=== PATIENT | female | born 1955 | race American Indian/Alaskan Native ===

== ENCOUNTER 2021-03-03 01:06 | Emergency (ER) | payer BC ==
[2021-03-03] MEDS ORDERED: FAMOTIDINE 20 MG/2 ML INJ IV ONE (01:54)
[2021-03-03] MEDS ORDERED: MORPHINE 4 MG/1 ML INJ IV ONE (01:54)
[2021-03-03] MEDS ORDERED: ONDANSETRON 4 MG/2 ML INJ IV ONE (01:54)
[2021-03-03] MEDS ORDERED: SODIUM CHLORIDE 0.9% 1000 ML 1,000 ML IV ONE (01:54)
--- NOTE | 2021-03-03 02:10 | Event Note ---
ED Screening Note Date of service: 03/03/21 Time: 02:08 ED Screening Note: Patient is a 65-year-old -[place] female with a history of hypertension who presents to the ED with complaint of acute onset persistent intractable nausea and vomiting for the last 6 hours. Patient also states that she developed sudden onset dizziness with room spinning around after vomiting. Patient also states that she has not had a bowel movement in 5 days. Patient also complains of epigastric pain after having multiple episodes of vomiting. Patient denies syncope, lightheadedness, chest pain, shortness of breath, palpitations, diaphoresis, dysuria, urinary frequency and urgency, hematemesis, hemoptysis or cough, fever and chills. This initial assessment/diagnostic orders/clinical plan/treatment(s) is/are subject to change based on patients health status, clinical progression and re-assessment by fellow clinical providers in the ED. Further treatment and workup at subsequent clinical providers discretion. Patient/guardian urged not to elope from the ED as their condition may be serious if not clinically assessed and managed. Initial orders include: EKG, CBC, CMP, troponin, abdomen x-ray with chest, head CT scan without contrast, lipase, UA
[2021-03-03 02:21] LABS: Basophils % (Auto) 0.2 % (0.0-1.8); Eosinophils % (Auto) 0.2 % (0.0-4.3); Hematocrit 39.9 % (30.3-42.9); Lymphocytes % (Auto) 8.5 % (13.4-35.0); Mean Corpuscular HGB Conc 33 % (30-34); Mean Corpuscular Volume 83 fl (79-97); Monocytes # (Auto) 0.3 K/mm3 (0.0-0.8); Monocytes % (Auto) 2.1 % (0.0-7.3); Platelet Count 347 K/mm3 (140-440)
--- NOTE | 2021-03-03 02:28 | XRay Report ---
Abdomen with chest 3 views INDICATION: Dizziness FINDINGS: Constipation right colon. Calcific density is seen in the right lower quadrant measuring 1. 4 cm may be within the bowel. Prior cholecystectomy. No acute bone findings are seen. No free air is identified. No other acute findings. Signer Name: Rm Hdz MD Signed: 03/03/2021 2:24 AM Workstation Name: [email or web address]
[2021-03-03 02:42] LABS: Alanine Aminotransferase 18 units/L (7-56); Albumin 4.4 g/dL (3.9-5); Blood Urea Nitrogen 16 mg/dL (7-17); Hemolysis Index 7
[2021-03-03 02:44] LABS: BUN/Creatinine Ratio 23
--- NOTE | 2021-03-03 03:22 | Cat Scan Report ---
CT HEAD WITHOUT CONTRAST INDICATION / CLINICAL INFORMATION: dizziness. TECHNIQUE: All CT scans at this location are performed using CT dose reduction for ALARA by means of automated e xposure control. COMPARISON: None available. FINDINGS: No acute intracranial hemorrhage. Ventricles normal in size without midline shift or mass effect. Lef t maxillary sinus disease is seen. ADDITIONAL FINDINGS: None. IMPRESSION: 1. Left maxillary sinus disease. No other acute findings. Signer Name: Rm Hdz MD Signed: 03/03/2021 3:18 AM Workstation Name: [id number]
--- NOTE | 2021-03-03 04:10 | Emergency Department Report ---
ED N/V/D HPI - General Chief complaint: Abdominal Pain Stated complaint: ABD PAIN NO BM X5DAYS DIZZINESS Time Seen by Provider: 03/03/21 02:23 Source: patient Mode of arrival: Ambulatory Limitations: No Limitations - History of Present Illness Initial comments: Patient is a 65-year-old -English female with a history of hypertension who presents to the ED with complaint of acute onset persistent intractable nausea and vomiting for the last 6 hours. Patient also states that she developed sudden onset dizziness with room spinning around after vomiting. Patient also states that she has not had a bowel movement in 5 days. Patient also complains of epigastric pain after having multiple episodes of vomiting. Patient denies syncope, lightheadedness, chest pain, shortness of breath, palpitations, diaphoresis, dysuria, urinary frequency and urgency, hematemesis, hemoptysis or cough, fever and chills. MD complaint: nausea, vomiting, abdominal pain (Epigastric), other (dizziness; constipation) -: Sudden Description of Vomiting: food contents, watery, bilious Associated Abdominal Pain: Yes (mild epigastric ) Location: epigastric Radiation: none Severity: moderate Pain Scale: 5 Quality: cramping, aching Consistency: constant Improves with: none Worsens with: vomiting Context: other (constipation) Associated Symptoms: denies other symptoms, loss of appetite, malaise, nausea/vomiting, other (Dizziness). denies: myalgias, chest pain, cough, diaphoresis, fever/chills, headaches, rash, dysuria, shortness of breath, syncope, weakness - Related Data Previous Rx's Medication Instructions Recorded Last Taken Type Amoxicillin [Trimox CAP] 500 mg PO Q8H #30 capsule 03/03/21 Unknown Rx Docusate Sodium [Dok] 100 mg PO Q12H #60 tablet 03/03/21 Unknown Rx Famotidine [Pepcid] 20 mg PO BID #60 tablet 03/03/21 Unknown Rx Magnesium Citrate 296 ml PO ONCE #1 bottle 03/03/21 Unknown Rx Ondansetron [Zofran Odt] 4 mg PO Q6HR PRN #20 tab.rapdis 03/03/21 Unknown Rx Allergies Allergy/AdvReac Type Severity Reaction Status Date / Time No Known Allergies Allergy Unverified 03/03/21 01:24 ED Review of Systems ROS: Stated complaint: ABD PAIN NO BM X5DAYS DIZZINESS Other details as noted in HPI Constitutional: malaise. denies: chills, fever Eyes: denies: eye pain, eye discharge, vision change ENT: denies: ear pain, throat pain Respiratory: denies: cough, shortness of breath, wheezing Cardiovascular: denies: chest pain, palpitations Endocrine: no symptoms reported Gastrointestinal: abdominal pain (Mild epigastric), nausea, vomiting, constipation. denies: diarrhea Genitourinary: denies: urgency, dysuria, discharge Musculoskeletal: denies: back pain, joint swelling, arthralgia Skin: denies: rash, lesions Neurological: vertigo. denies: headache, weakness, paresthesias Psychiatric: anxiety. denies: depression Hematological/Lymphatic: denies: easy bleeding, easy bruising ED Past Medical Hx - Past Medical History Previous Medical History?: Yes Hx Hypertension: Yes - Surgical History Past Surgical History?: Yes - Medications Home Medications: Home Medications Medication Instructions Recorded Confirmed Last Taken Type Amoxicillin [Trimox CAP] 500 mg PO Q8H #30 capsule 03/03/21 Unknown Rx Docusate Sodium [Dok] 100 mg PO Q12H #60 tablet 03/03/21 Unknown Rx Famotidine [Pepcid] 20 mg PO BID #60 tablet 03/03/21 Unknown Rx Magnesium Citrate 296 ml PO ONCE #1 bottle 03/03/21 Unknown Rx Ondansetron [Zofran Odt] 4 mg PO Q6HR PRN #20 tab.rapdis 03/03/21 Unknown Rx ED Physical Exam - General Limitations: No Limitations General appearance: alert, in no apparent distress - Head Head exam: Present: atraumatic, normocephalic, normal inspection - Eye Eye exam: Present: normal appearance, PERRL, EOMI Pupils: Present: normal accommodation - ENT ENT exam: Present: normal exam, normal orophraynx, mucous membranes moist, TM's normal bilaterally, normal external ear exam - Neck Neck exam: Present: normal inspection, full ROM - Respiratory Respiratory exam: Present: normal lung sounds bilaterally. Absent: respiratory distress, wheezes, rhonchi, stridor, chest wall tenderness, accessory muscle use, decreased breath sounds, prolonged expiratory - Cardiovascular Cardiovascular Exam: Present: regular rate, normal rhythm, normal heart sounds. Absent: systolic murmur, diastolic murmur, rubs, gallop - GI/Abdominal GI/Abdominal exam: Present: soft, tenderness (Palpable mild epigastric tenderness), normal bowel sounds. Absent: guarding, rebound, hyperactive bowel sounds, mass - Extremities Exam Extremities exam: Present: normal inspection, full ROM, normal capillary refill - Back Exam Back exam: Present: normal inspection, full ROM. Absent: tenderness, CVA tenderness (R), CVA tenderness (L), muscle spasm, paraspinal tenderness, vertebral tenderness - Neurological Exam Neurological exam: Present: alert, oriented X3, CN II-XII intact, normal gait, reflexes normal - Psychiatric Psychiatric exam: Present: normal affect, normal mood, anxious - Skin Skin exam: Present: warm, dry, intact, normal color. Absent: rash ED Course Vital Signs 03/03/21 01:26 Temperature 98.0 F Pulse Rate 93 H Respiratory 17 Rate Blood Pressure 206/94 O2 Sat by Pulse 95 Oximetry ED Medical Decision Making - Lab Data Result diagrams: 03/03/21 02:00 03/03/21 02:00 - Radiology Data Radiology results: report reviewed, image reviewed [address] [address] XRay Report Signed Patient: ROSALIE FLORES MR#: [id number] : 1955 Acct:[id number] Age/Sex: 65 / F ADM Date: 03/03/21 Loc: ED Attending Dr: Ordering Physician: JAGUAR BARAHONA Date of Service: 03/03/21 Procedure(s): XR abd series w cxr 1V Accession Number(s): [id number] cc: JAGUAR BARAHONA Fluoro Time In Minutes: Abdomen with chest 3 views INDICATION: Dizziness FINDINGS: Constipation right colon. Calcific density is seen in the right lower quadrant measuring 1.4 cm may be within the bowel. Prior cholecystectomy. No acute bone findings are seen. No free air is identified. No other acute findings. Signer Name: Rm Hdz MD Signed: 03/03/2021 2:24 AM Workstation Name: [id number] Transcribed By: CW Dictated By: SANDI HDZ MD Electronically Authenticated By: SANDI HDZ MD Signed Date/Time: 03/03/21 0224 DD/ 2 TD/TT: [facility] [address] [place] [address] Cat Scan Report Signed Patient: ROSALIE FLORES MR#: [id number] : 1955 Acct:[id number] Age/Sex: 65 / F ADM Date: 03/03/21 Loc: ED Attending Dr: Ordering Physician: JAGUAR BARAHONA Date of Service: 03/03/21 Procedure(s): CT head/brain wo con Accession Number(s): [id number] cc: JAGUAR BARAHONA CT HEAD WITHOUT CONTRAST INDICATION / CLINICAL INFORMATION: dizziness. TECHNIQUE: All CT scans at this location are performed using CT dose reduction for ALARA by means of automated exposure control. COMPARISON: None available. FINDINGS: No acute intracranial hemorrhage. Ventricles normal in size without midline shift or mass effect. Left maxillary sinus disease is seen. ADDITIONAL FINDINGS: None. IMPRESSION: 1. Left maxillary sinus disease. No other acute findings. Signer Name: Rm Hdz MD Signed: 03/03/2021 3:18 AM Workstation Name: [id number] Transcribed By: CW Dictated By: SANDI HDZ MD Electronically Authenticated By: SANDI HDZ MD Signed Date/Time: 03/03/21317 DD/ 6 TD/TT: - Medical Decision Making This is a 65-year-old -English female with a history of hypertension who presents to the ED with complaint of acute onset persistent intractable nausea and vomiting for the last 6 hours. Patient also states that she developed sudden onset dizziness with room spinning around after vomiting. Patient also states that she has not had a bowel movement in 5 days. Patient also complains of epigastric pain after having multiple episodes of vomiting. In the ED, patient is alert and oriented x3 and is not in any distress. Lab test results were reviewed and are all nonactionable except for mild leukocytosis of 12,300. Abdomen x-ray showed significant diffuse colonic stool burden consistent with constipation. The chest x-ray showed no acute cardiopulmonary abnormalities or pneumonitis. The head CT scan without contrast showed no acute intracranial abnormalities or hemorrhage but left maxillary sinusitis. Patient was treated with antacids, antiemetics and also given normal saline 1 L IV bolus x1. On reevaluation, patient felt better, patient passed oral fluid challenge in the ED after treatment. Patient was therefore discharged home on medications and advised to follow-up with her primary care physician in 3 to 5 days for reevaluation or return to the ED immediately if symptoms get worse. - Differential Diagnosis Constipation; Gastroenteritis; Dehydration; Sinusitis; GERD Critical care attestation.: If time is entered above; I have spent that time in minutes in the direct care of this critically ill patient, excluding procedure time. ED Disposition Clinical Impression: Left maxillary sinusitis Constipation Qualifiers: Constipation type: other constipation type Qualified Code(s): K59.09 - Other constipation GERD (gastroesophageal reflux disease) Qualifiers: Esophagitis presence: esophagitis presence not specified Qualified Code(s): K21.9 - Gastro-esophageal reflux disease without esophagitis Nausea and vomiting Qualifiers: Vomiting type: unspecified Vomiting Intractability: non-intractable Qualified Code(s): R11.2 - Nausea with vomiting, unspecified Disposition: 01 HOME / SELF CARE / HOMELESS Is pt being admited?: No Does the pt Need Aspirin: No Condition: Stable Instructions: Constipation, Adult, [id number], Sinusitis, Adult, [id number], Nausea and Vomiting, Adult, [id number], Gastroesophageal Reflux Disease, Adult, [id number], Abdominal Pain (ED) Additional Instructions: All lab test results were reviewed and are all nonactionable. Chest x-ray showed no acute cardiopulmonary abnormalities or pneumonitis. Abdomen x-ray showed significant stool burden in the colon consistent with constipation. The head CT scan without contrast showed no acute intracranial abnormalities or hemorrhage but left maxillary sinusitis. Therefore take medications as advised, drink plenty of fluids and follow-up with your primary care physician in 7 to 10 days for reevaluation. Return to the ED immediately if symptoms get worse. Prescriptions: Docusate Sodium [Dok] 100 mg PO Q12H #60 tablet Magnesium Citrate 296 ml PO ONCE #1 bottle Famotidine [Pepcid] 20 mg PO BID #60 tablet Amoxicillin [Trimox CAP] 500 mg PO Q8H #30 capsule Ondansetron [Zofran Odt] 4 mg PO Q6HR PRN #20 tab.rapdis PRN Reason: Nausea And Vomiting Referrals: [facility] [Provider Group] - 3-5 Days Time of Disposition: 04:13 Print Language: TURKMEN
[2021-03-03 09:31] VITALS: BP 159/86
--- NOTE | 2021-03-05 09:43 | Electrocardiograph Report ---
[facility] Test Date: 2021-03-03 Test Time: 01:37:41 Pat Name: ROSALIE FLORES Department: Room: Gender: F Private Banker: SYL : 1955 Requested By: EULALIO WATSON Order Number: [id number] Reading MD: Daniel Medel Measurements Intervals [place] Rate: 81 P: 64 PA: 148 QRS: 70 QRSD: 89 T: 60 QT: 420 QTc: 487 Interpretive Statements Sinus rhythm No previous ECG available for comparison Electronically Signed On 03-05-2021 9:43:13 EDT by Daniel Medel
== END 2021-03-03 10:27 | disposition home or self-care (01) ==
LOC: ED 01:06
DX: J32.0 Chronic maxillary sinusitis (principal); K59.00 Constipation, unspecified; K21.9 Gastro-esophageal reflux disease without esophagitis; R11.2 Nausea with vomiting, unspecified; I10 Essential (primary) hypertension; Z79.899 Other long term (current) drug therapy
CPT/HCPCS: 36415; 70450; 74022; 80053; 83690; 84484; 85025; 93005; 99284

== ENCOUNTER 2021-11-29 14:36 | Outpatient (CLI) | payer BC | END 2021-11-29 14:37 | disposition home or self-care (01) | LOC: LABHHL 14:36 | PROVIDERS: ATTEND Otolaryngology Otology & Neurotology | DX: J32.0 Chronic maxillary sinusitis (principal); J32.2 Chronic ethmoidal sinusitis; J32.1 Chronic frontal sinusitis | CPT/HCPCS: 88304; 88305; 88311 ==